=== PATIENT | female | born 1970 | race Caucasian/White ===

== ENCOUNTER 2018-08-10 16:39 | Inpatient (IN) | payer MEDICARE ==
[~2018-08-10] VITALS: Ht 175.3 cm; Wt 80.6 kg
--- NOTE | ~2018-08-10 | EC ---
PATIENT:ALFREDO SELLERS DATE OF SERVICE: 08/10/18 SEX: F MEDICAL RECORD: [id number] DATE OF : [birth year] LOCATION:[place] [address] AGE OF PATIENT: 48 ADMISSION DATE: 08/10/18 REFERRING PHYSICIAN: INTERPRETING PHYSICIAN: MARIA LUISA ACOSTA MD ECHOCARDIOGRAM REPORT ECHO CHARGES 4 ECHO COMPLETE Date: 08/14/18 CLINICAL DIAGNOSIS: AFIB ECHOCARDIOGRAPHIC MEASUREMENTS (adult normal given) AC root (d.<3.7cm) 3.6 cm LV Septum d (<1.2 cm> 1.9 cm Valve Excursion 1.3 cm LV Septum (systole) 2.0 cm Left Atria (s.<4.0cm> 3.4 cm LVPW d(<1.2cm) 2.2 cm RV (d.<2.3cm) 5.2 cm LVPW (sytole) 2.4 cm LV diastole(<5.6CM) 4.0 cm MV E-F(>70mm/sec) cm LV systole 2.5 cm LVOT Diameter 1.6 cm MV exc.(>10mm) 1.4 cm Est.ejection fraction (50-75%) % DOPPLER: LVIT cm/sec A 1214 cm/sec E 104 cm/sec LA cm/sec RVSP 57 mmHg LVOT 101 cm/sec AOP1/2T m/s Asc. Ao 256 cm/sec RVOT 87 cm/sec RA cm/sec PA 187 cm/sec AV Gradient Peak 26.18mmHg AV Mean 15.72mmHg AV Area 1.8 cm MV Gradient Peak 7.93 mmHg MV Mean 3.39 mmHg MV Area cm COMMENTS: [employer]: Judy MAGUIRE Dredge Master: 1 Dr. Acosta TAPE# PACS Pericardial Effusion N DATE OF SERVICE: 08/14/2018 PROCEDURE: Echocardiogram. FINDINGS: 1. Left ventricular chamber size is within normal limits. Left ventricular systolic function is normal. Overall ejection fraction estimated at 60%. 2. Left atrium is within normal limits at 3.4 cm. Right atrium and right ventricle chamber sizes are moderately dilated. 3. Valvular structures: Aortic valve demonstrates mild calcific aortic ECHOCARDIOGRAM REPORT [id number] ALFREDO SELLERS stenosis, valve area calculates to 1.8 cm-squared and there is a gradient of 26 mm across the valve. The mitral valve has thickened echogenic area that appears to be vegetation on the anterior leaflet. 4. Doppler interrogation reveals mild mitral regurgitation, moderate tricuspid regurgitation, no other valvular insufficiency or stenosis. Pulmonary systolic pressure is estimated 52 mmHg. 5. No evidence of pericardial effusion or left ventricular thrombus. OVERALL IMPRESSION: Echogenic structure on the mitral valve compatible with endocarditis. TRANSINT:[id number] Voice Confirmation ID: [id number] DOCUMENT ID: [id number] MARIA LUISA ACOSTA MD at 1729 CC: [id number] DICTATION DATE: 08/14/18 1236 NOVELTY DIPPER: 08/14/18 1241 ADM IN [facility] [address] [place] [id number]
--- NOTE | ~2018-08-10 | HP ---
PATIENT: ALFREDO CHAMPAGNE MEDICAL RECORD: [id number] ACCOUNT: [id number] LOCATION:[facility].2113 : [birth year] ADMISSION DATE: 08/10/18 PCP: BRIAN JARAMILLO MD HISTORY AND PHYSICAL EXAMINATION HISTORY OF PRESENT ILLNESS: Ms. Champagne is a 48-year-old female who presented to [facility] for her regular dialysis days, which are Monday, Monday, Monday. When she presented, she had a facial angioedema where her eyes were swollen shut. She could barely open them. She had a weight gain of 7+ kilos since Monday. The patient was also confused and could not tell where she was, she knew who she was, but she thought she was at the hospital. Also when temperature was taken, she had a temperature of 100. Her pulse ox was at 82%. Oxygen was supplied and we could no longer get another pulse ox reading. The patient has a history of ESRD, has been on hemodialysis many years. She also has a history of diabetes mellitus, noncompliant with medications. Blood sugar here showed it was 454. The patient is being dialyzed for a couple of hours to remove as much fluid as possible. Then, she will be transferred to [facility] for further workup of the angioedema and further fluid removal as needed for fluid overload. PAST MEDICAL HISTORY: Include: 1. End-stage renal disease. 2. Hypertension. 3. Diabetes mellitus. 4. Pulmonary hypertension. 5. Gastroesophageal reflux disease. 6. History of leg wounds. SOCIAL HISTORY:. The patient lives at home by herself. She does continue to smoke. She does deny any alcohol or illicit drug use. FAMILY HISTORY: Noncontributory at this time. MEDICATIONS: Per eMAR. REVIEW OF SYSTEMS: Positive for edema. Positive for leg wounds. Positive for confusion. PHYSICAL EXAMINATION: GENERAL: The patient is alert to name only. The patient has a large facial edema with periorbital edema. Eyes was almost closed shut. VITAL SIGNS: Stable except for her pulse ox is 82% along with her temperature is 100. HEENT: Eyes are swollen. LUNGS: Clear with crackles at the base, they are decreased. ABDOMEN: Soft. EXTREMITIES: She does have some edema in both her arms, pitting and chronic edema in her legs. CARDIAC: Regular rate and rhythm. Positive for vein bulging. PLAN: 1. Fluid overload. The patient will dialyze at [facility] and then transfer to [facility] for further fluid removal. 2. Angioedema. We will work up to see there is central stenosis or other reasoning behind this. HISTORY AND PHYSICAL [id number] ALFREDO CHAMPAGNE 3. Hypertension. Continue current medications. 4. Leg wounds. We will consult wound care. 5. Decline in mental status. Hopefully, with dialysis, this will improve. Further workup if needed. 6. Fever. We will get some blood cultures and start some antibiotics. TRANSINT:[id number] Voice Confirmation ID: [id number] DOCUMENT ID: [id number] Dictated By: TRAVON BENDER I have interviewed/examined the above patient and agree with these documented findings. BRIAN JARAMILLO MD at 1020 at 1319 CC: [id number] DICTATION DATE: 08/10/18 1548 MAITRE D': 08/10/18 1639 ADM IN [facility] [address] [place] [address]
--- NOTE | ~2018-08-10 | CN ---
PATIENT NAME:ALFREDO CHAMPAGNE MEDICAL RECORD: [id number] : 68 LOCATION:[place] ADMIT DATE: 08/10/18 ACCOUNT: [id number] CONSULTING PHYSICIAN: MARIA LUISA MUÑOZ MD REFERRING PHYSICIAN: BRIAN JARAMILLO MD DATE OF CONSULTATION: 08/13/2018 Cardiology Consultation DIAGNOSES: 1. Atrial fibrillation with rapid response. 2. Hypotension. 3. End-stage renal failure, on dialysis. 4. Fever. HISTORY OF PRESENT ILLNESS: Ms. Champagne is a long-term dialysis patient, has no cardiac history. She presented with facial angioedema and was felt to be fluid overloaded, was started on dialysis, became quite hypotensive. She has been running fever and she has blood cultures pending. She then was transferred to the intensive care unit where she was found to be in atrial fibrillation with rapid response. We have no idea of the duration of the atrial fibrillation, it has been difficult to get vitals on her secondary to her hypotension but her heart rate has not been elevated on the vitals that were done previously. She was hypotensive in the 90s. She is currently hypotensive in the 80s. PHYSICAL EXAMINATION: GENERAL APPEARANCE: Well-nourished, well-developed, appears stated age. Level of distress, comfortable. PSYCHIATRIC: Mental status, alert, normal affect. Orientation, oriented to time, place and person. EYES: Lids and conjunctiva, noninjected. No discharge, no pallor. ENT: Lips, teeth, gums, normal dentition. Oropharynx, no cyanosis, no pallor. NECK: Carotid arteries, bilateral normal upstroke, no bruits, no thrills. JUGULAR VEINS: No jugular venous pressure or distention. CERVICAL LYMPH NODES: Nontender, nonenlarged. THYROID: Not enlarged. Nontender. No nodules. LUNGS: Respiratory effort, unlabored. CHEST: Normal curvature. No thoracic deformity. No chest wall tenderness. Percussion, resonant. Auscultation, clear. No wheezes, no rales, no rhonchi. CARDIOVASCULAR: Precordial exam, nondisplaced. No heaves or pericardial thrills. Rate and rhythm, regular. Heart sounds, normal S1, normal S2. No S3, no gallop, no rub. Systolic murmur, not heard. Diastolic murmur, not heard. EXTREMITIES: No cyanosis, no edema. Peripheral pulses, full and equal in all extremities, except as noted. No bruits appreciated. ABDOMEN: Soft, nondistended. Normal aorta. No bruit. Nontender. No masses. Liver, nontender, no hepatomegaly. Spleen, nontender, no splenomegaly. MUSCULOSKELETAL: No joint tenderness. No joint swelling. No erythema. NEUROLOGICAL: Normal gait, normal strength, normal tone. SKIN: Warm and dry. OVERALL IMPRESSION: Atrial fibrillation with rapid response. At this time, we will use digoxin 0.5 mg IV x1 for a load and 0.25mg IV times 4 doses to complete her load. We will get an echocardiogram, has a very high likelihood that she does have a sepsis syndrome and she does have antibiotics. Blood cultures are pending. At this time, obviously we will hold all her blood pressure CONSULT REPORT [id number] ALFREDO CHAMPAGNE medications as well. TRANSINT:[id number] Voice Confirmation ID: [id number] DOCUMENT ID: [id number] MARIA LUISA MUÑOZ MD at 1729 CC: [id number] DICTATION DATE: 08/13/18 1711 INTERFACE CONTROL OFFICER: 08/13/18 2116 ADM IN [place] [id number] [place] [id number]
[~2018-08-10 16:39] MED LIST: ACTOS15 MG PO; BENTYL 20 MG TA20 MG; BENTYL 20 MG TA20 MG PO; CATAPRES0.3 MG PO; COREG25 MG PO; GLIMEPIRIDE4 MG PO; HYDRALAZINE HCL50 MG; HYDROCODON-ACE1 EAC9 PO; IPRAT-ALBUT 0.5-3 ML UPD; KEFLEX500 MG PO; LASIX40 MG PO; LYRICA150 MG PO; LYRICA50 MG PO; OMEPRAZOLE20 M1 PO; PEPCID AC20 MG PO; RENVELA800 MG PO; VIBRAMYCIN 100100 MG PO
[2018-08-10] MEDS ORDERED: MONOPRIL10 MG PO (23:58)
[2018-08-10] MEDS ORDERED: NEPHRO-VITE RX1 TAB PO (23:59)
[2018-08-10] MEDS ORDERED: HYDRALAZINE HC100 MG PO (23:59)
[2018-08-11] MEDS ORDERED: PLAVIX75 MG PO (00:01)
[2018-08-11] MEDS ORDERED: ZOFRAN8 MG PO (00:01)
[2018-08-11] MEDS ORDERED: QUESTRAN LIG1 PACKET PO (00:02)
[2018-08-11] MEDS ORDERED: TUMS X-STR300 MG PO (00:03)
[2018-08-11 05:08] LABS: BASOPHILS 0.1 % (0-2); EOSINOPHILS 0.7 % (0-7); HEMATOCRIT 30.6 % (36.0-48.0); HEMOGLOBIN 9.8 g/dL (12-16); IMMATURE GRANULOCYTES 0.3 % (0-5); LYMPHOCYTES 4.7 % (15-50); MCH 29.9 pg (26.0-34.0); MCV 93.3 fL (80.0-100.0); MEAN PLATELET VOLUME 11.3 fL (7.4-10.4); MONOCYTES 3.3 % (2-11); NEUTROPHILS 90.9 % (40-80); PLATELET COUNT 152 10x3/uL (130-400); RBC 3.28 10x6/uL (4.00-5.40); RDW 16.9 % (11.5-14.5); WBC 19.1 10x3/uL (4.8-10.8)
[2018-08-11 06:17] LABS: ANION GAP 17.6 mmol/L (8-16); CALCIUM 8.1 mg/dL (8.5-10.1); CARBON DIOXIDE 24.9 mmol/L (21.0-32.0); CREATININE - SERUM 3.8 mg/dL (0.6-1.3); PHOSPHOROUS 4.8 mg/dL (2.5-4.9); POTASSIUM - SERUM 3.5 mmol/L (3.5-5.1); VANCOMYCIN - RANDOM 0.8 ug/mL (10.0-20.0)
[2018-08-11 06:43] VITALS: BP 149/119
[2018-08-11 07:57] VITALS: BP 117/60
[2018-08-11 11:59] VITALS: BP 125/77
[2018-08-11 12:47] VITALS: BMI 25.3
[2018-08-11 18:11] VITALS: BP 125/77; Ht 175.3 cm; Wt 80.6 kg
[2018-08-11 20:30] VITALS: BP 121/69
[2018-08-12 08:20] VITALS: BP 99/49
[2018-08-12 09:54] LABS: HEMATOCRIT 30.3 % (36.0-48.0); HEMOGLOBIN 9.5 g/dL (12-16); MCH 29.8 pg (26.0-34.0); MCHC 31.4 g/dL (31.0-37.0); MEAN PLATELET VOLUME 11.2 fL (7.4-10.4); PLATELET COUNT 139 10x3/uL (130-400); RBC 3.19 10x6/uL (4.00-5.40); WBC 24.8 10x3/uL (4.8-10.8)
[2018-08-12 10:03] LABS: ANION GAP 19.7 mmol/L (8-16); CALCIUM 8.1 mg/dL (8.5-10.1); CARBON DIOXIDE 23.1 mmol/L (21.0-32.0); CREATININE - SERUM 4.9 mg/dL (0.6-1.3); POTASSIUM - SERUM 3.8 mmol/L (3.5-5.1)
[2018-08-12 10:23] LABS: BASOPHILS 1 % (0-2); EOSINOPHILS 1 % (0-7); LYMPHOCYTES 1 % (15-50); MONOCYTES 1 % (2-11); NEUTROPHILS 95 % (40-80); PLATELET ESTIMATE DECREASED
[2018-08-12 11:36] VITALS: BP 101/50
[2018-08-12 16:19] VITALS: BP 138/112
[2018-08-12 23:17] VITALS: BP 175/78
[2018-08-13] VITALS (11 sets, daily range): BP systolic 70–146; BP diastolic 25–59
[2018-08-13 06:00] LABS: BASOPHILS 0.1 % (0-2); EOSINOPHILS 0.4 % (0-7); HEMATOCRIT 28.9 % (36.0-48.0); IMMATURE GRANULOCYTES 0.4 % (0-5); LYMPHOCYTES 2.4 % (15-50); MCH 30.3 pg (26.0-34.0); MCHC 31.1 g/dL (31.0-37.0); MCV 97.3 fL (80.0-100.0); MEAN PLATELET VOLUME 11.4 fL (7.4-10.4); MONOCYTES 5.1 % (2-11); NEUTROPHILS 91.6 % (40-80); PLATELET COUNT 132 10x3/uL (130-400); RBC 2.97 10x6/uL (4.00-5.40); RDW 17.1 % (11.5-14.5); WBC 28.4 10x3/uL (4.8-10.8)
[2018-08-13 06:23] LABS: ALBUMIN 2.1 g/dL (3.4-5.0); ANION GAP 23.8 mmol/L (8-16); BILIRUBIN - TOTAL 1.4 mg/dL (0.2-1.3); CALCIUM 8.1 mg/dL (8.5-10.1); CARBON DIOXIDE 23.1 mmol/L (21.0-32.0); CREATININE - SERUM 5.7 mg/dL (0.6-1.3); PHOSPHOROUS 7.2 mg/dL (2.5-4.9); POTASSIUM - SERUM 3.9 mmol/L (3.5-5.1); PROTEIN - SERUM 5.5 g/dL (6.4-8.2)
[2018-08-14] VITALS (24 sets, daily range): BP systolic 57–111; BP diastolic 28–60
[2018-08-14 04:49] LABS: BASOPHILS 0.1 % (0-2); EOSINOPHILS 0.1 % (0-7); HEMATOCRIT 31.1 % (36.0-48.0); HEMOGLOBIN 9.7 g/dL (12-16); IMMATURE GRANULOCYTES 0.6 % (0-5); LYMPHOCYTES 3.4 % (15-50); MCH 29.8 pg (26.0-34.0); MCHC 31.2 g/dL (31.0-37.0); MCV 95.4 fL (80.0-100.0); MEAN PLATELET VOLUME 11.4 fL (7.4-10.4); MONOCYTES 4.8 % (2-11); PLATELET COUNT 162 10x3/uL (130-400); RBC 3.26 10x6/uL (4.00-5.40); RDW 16.5 % (11.5-14.5); WBC 35.5 10x3/uL (4.8-10.8)
[2018-08-14 04:52] LABS: ANION GAP 16.1 mmol/L (8-16); CALCIUM 8.4 mg/dL (8.5-10.1); CARBON DIOXIDE 26.2 mmol/L (21.0-32.0); CREATININE - SERUM 5.5 mg/dL (0.6-1.3); PHOSPHOROUS 7.4 mg/dL (2.5-4.9); POTASSIUM - SERUM 4.3 mmol/L (3.5-5.1); VANCOMYCIN - RANDOM 17.2 ug/mL (10.0-20.0)
[2018-08-15] VITALS: BP 94/39
[2018-08-15 01:00] VITALS: BP 88/46
== END 2018-08-15 02:30 | disposition hospice, inpatient (51) | DRG 871 ==
LOC: D.M2 16:39 → D.ICU 21:27 → D.SDCHOLD 08-12 10:48 → D.M2 08-12 10:50 → D.ICU 08-13 16:51
PROVIDERS: Internal Medicine Nephrology
DX: A41.9 Sepsis, unspecified organism (principal); N18.6 End stage renal disease; I12.0 Hypertensive chronic kidney disease with stage 5 chronic kidney disease or end stage renal disease; A04.72 Enterocolitis due to Clostridium difficile, not specified as recurrent; E11.22 Type 2 diabetes mellitus with diabetic chronic kidney disease; Z99.2 Dependence on renal dialysis; Z91.14 Patient's other noncompliance with medication regimen; I48.91 Unspecified atrial fibrillation; D63.1 Anemia in chronic kidney disease; K21.9 Gastro-esophageal reflux disease without esophagitis; F17.200 Nicotine dependence, unspecified, uncomplicated; E83.39 Other disorders of phosphorus metabolism; T78.3XXA Angioneurotic edema, initial encounter; E87.70 Fluid overload, unspecified; I27.20 Pulmonary hypertension, unspecified; S80.929A Unspecified superficial injury of unspecified lower leg, initial encounter